=== PATIENT | male | born 1955 | race Hispanic/Latino ===

== ENCOUNTER 2021-11-18 10:59 | Emergency (ER) | payer OTHER, MEDICARE ==
[~2021-11-18] VITALS: Ht 175.3 cm; Wt 93.4 kg
[2021-11-18 11:00] VITALS: BP 134/67
[2021-11-18 11:17] LABS: BASOPHILS % (AUTO) 0.5 % (0.0-5.0); EOSINOPHILS % (AUTO) 1.2 % (0.0-8.0); HEMATOCRIT 45.5 % (42-54); LYMPHOCYTES % (AUTO) 23.9 % (21.0-51.0); MEAN CORPUSCULAR HEMOGLOBIN 32.2 pg (27.0-33.0); MEAN CORPUSCULAR HGB CONC 34.5 g/dL (32.0-36.0); MEAN CORPUSCULAR VOLUME 93.4 fL (79-99); MONOCYTES % (AUTO) 7.8 % (3.0-13.0); NEUTROPHILS % (AUTO) 66.4 % (40.0-77.0); PLATELET COUNT (AUTO) 218 K/uL (130-400); RED BLOOD CELL COUNT(AUTO) 4.87 MIL/uL (4.50-6.20); RED CELL DISTRIBUTION WIDTH 12.3 % (11.0-15.5); WHITE BLOOD COUNT (AUTO) 5.9 K/uL (4.8-10.8)
[2021-11-18 11:26] LABS: CREATININE 1.2 mg/dL (0.5-1.5); POTASSIUM 4.2 mmol/L (3.5-5.1)
[2021-11-18 11:30] LABS: ALBUMIN 3.4 g/dL (3.5-5.0); BILIRUBIN,TOTAL 0.5 mg/dL (0.2-1.0); TOTAL PROTEIN, SERUM 7.6 g/dL (6.0-8.3)
[2021-11-18] MEDS ORDERED: FAMOTIDINE 20MG TAB PO ONE (11:30)
[2021-11-18] MEDS ORDERED: DICYCLOMINE HCL 20 MG TAB PO SCH (11:30)
[2021-11-18] MEDS ORDERED: ONDANSETRON ODT 4MG TAB SL ONE (11:30)
[2021-11-18] MEDS ORDERED: BACI1CAP6 PO (12:48)
[2021-11-18] MEDS ORDERED: ONDA4TAB10 PO (12:48)
[2021-11-18] MEDS ORDERED: DICY20TA2 PO (12:48)
== END 2021-11-18 13:02 | disposition home or self-care (01) ==
LOC: EDH 10:59
DX: K52.9 Noninfective gastroenteritis and colitis, unspecified (principal); I10 Essential (primary) hypertension
CPT/HCPCS: 36415; 80053; 82150; 83690; 84484; 85025